=== PATIENT | male | born 1960 | race Caucasian/White ===

== ENCOUNTER → 2024-08-14 13:33 | Outpatient (REF) | payer BC, SELFPAY | LOC: RAD 13:33 | PROVIDERS: ATTENDING PHYSICIAN Nurse Practitioner Family | DX: M79.89 Other specified soft tissue disorders (principal); R60.0 Localized edema | CPT/HCPCS: 93971 ==

== ENCOUNTER → 2025-03-13 07:43 | Outpatient (REF) | payer BC, SELFPAY | LOC: HWRAD 07:43 | PROVIDERS: ATTENDING PHYSICIAN Nurse Practitioner Family | DX: R79.89 Other specified abnormal findings of blood chemistry (principal) | CPT/HCPCS: 76700 ==

== ENCOUNTER → 2025-03-19 07:02 | Outpatient (REF) | payer BC, SELFPAY | LOC: RCS 07:02 | PROVIDERS: ATTENDING PHYSICIAN Nurse Practitioner Family | DX: R07.9 Chest pain, unspecified (principal) | CPT/HCPCS: 78452; 93017; A9500; J2785 ==

== ENCOUNTER 2025-05-04 06:25 | Day surgery (SDC) | payer BC, SELFPAY ==
[2025-05-04 07:50] LABS: Glucose - Point of Care 137 mg/dl (70-99)
== END 2025-05-04 09:49 | disposition home or self-care (01) ==
LOC: GI 06:25
PROVIDERS: ATTENDING PHYSICIAN Student in an Organized Health Care Education/Training Program
DX: Z12.11 Encounter for screening for malignant neoplasm of colon (principal); K62.89 Other specified diseases of anus and rectum; Z53.8 Procedure and treatment not carried out for other reasons
CPT/HCPCS: G0121; 82962

== ENCOUNTER 2025-08-21 06:22 | Day surgery (SDC) | payer BC, SELFPAY ==
[2025-08-21 07:28] LABS: Glucose - Point of Care 165 mg/dl (70-99)
== END 2025-08-21 08:50 | disposition home or self-care (01) ==
LOC: GI 06:22
PROVIDERS: ATTENDING PHYSICIAN Student in an Organized Health Care Education/Training Program; FAMILY PHYSICIAN Surgery
DX: Z12.11 Encounter for screening for malignant neoplasm of colon (principal); K62.89 Other specified diseases of anus and rectum; K63.5 Polyp of colon
CPT/HCPCS: 45385; 82962; 88305